=== PATIENT | female | born 1975 | race Caucasian/White ===

== ENCOUNTER 2017-04-01 15:30 | Emergency (ER) | payer OTHER ==
[~2017-04-01] VITALS: Ht 175.3 cm; Wt 121.2 kg
[~2017-04-01 15:30] MED LIST: LEVO25TA2 PO
[2017-04-01 15:33] VITALS: BP 147/99
[2017-04-01] MEDS ORDERED: ALBUTEROL SULFATE 2.5 MG/3 ML NPPB ONE (16:00)
[2017-04-01] MEDS ORDERED: DEXAMETHASONE 4 MG TABLET PO STA (16:12)
[2017-04-01] MEDS ORDERED: DEXAMETHASONE 4 MG TABLET ONE (16:14)
[2017-04-01] MEDS ORDERED: ALBUTEROL SULFATE 2.5 MG/3 ML ONE (16:24)
== END 2017-04-01 16:56 | disposition home or self-care (01) ==
LOC: ED 16:48
DX: J20.8 Acute bronchitis due to other specified organisms (principal); J01.00 Acute maxillary sinusitis, unspecified; J01.10 Acute frontal sinusitis, unspecified; E03.9 Hypothyroidism, unspecified; Z90.49 Acquired absence of other specified parts of digestive tract
CPT/HCPCS: 71020; 94640; J7613

== ENCOUNTER 2017-08-29 19:15 | Inpatient (IN) | payer OTHER ==
[~2017-08-29] VITALS: Ht 175.3 cm; Wt 124.0 kg
[2017-08-29] MEDS ORDERED: SODIUM CHLORIDE 0.9% 1,000 ML IV ONE (20:17)
[2017-08-29] MEDS ORDERED: ONDANSETRON 2MG/ML, 2ML ONE ×2 (20:17→21:15)
[2017-08-29] MEDS ORDERED: ONDANSETRON 2MG/ML, 2ML IVPush ONE (20:30)
[2017-08-29 20:38] LABS: HEMATOCRIT 40.9 % (34.6-47.8); HEMOGLOBIN 13.7 g/dL (11.7-16.4); WHITE BLOOD COUNT 15.6 x10^3/uL (3.4-10)
[2017-08-29] MEDS ORDERED: EPINEPHRINE 1 MG/ML, 1ML ONE (20:50)
[2017-08-29] MEDS ORDERED: MIDAZOLAM 1 MG/ML, 2ML ONE (21:10)
[2017-08-29] MEDS ORDERED: FENTANYL PF 100 MCG/2ML ONE (21:10)
[2017-08-29] MEDS ORDERED: PROPOFOL 10 MG/ML, 20ML ONE (21:15)
[2017-08-29] MEDS ORDERED: METOCLOPRAMIDE 5 MG/ML, 2ML ONE (21:15)
[2017-08-29] MEDS ORDERED: SUCCINYLCHOLINE 20 MG/ML, 10ML ONE (21:15)
[2017-08-29] MEDS ORDERED: DEXAMETHASONE 4 MG/ML, 5ML ONE (21:15)
[2017-08-29] MEDS ORDERED: ROCURONIUM 10 MG/ML ONE (21:15)
[2017-08-29] MEDS ORDERED: BUPIVACAINE/PF 0.5% INFIL ONE (21:46)
[2017-08-29] MEDS ORDERED: EPINEPHRINE 1 MG/ML, 1ML INFIL ONE (21:47)
[2017-08-29] MEDS ORDERED: PROPOFOL 100 ML IV ONE (22:19)
[2017-08-29] MEDS ORDERED: PROPOFOL 100 ML IV PRN (23:30)
[2017-08-29] MEDS ORDERED: FENTANYL PF 2,500 MCG in SODIUM CHLORIDE 0.9% 200 ML IV PRN (23:30)
[2017-08-30 00:03] LABS: HEMATOCRIT 32.7 % (34.6-47.8); HEMOGLOBIN 11.1 g/dL (11.7-16.4)
[2017-08-30] MEDS: CEFAZOLIN PMX 2GM/50ML 50 ML IVPB SCH ×2 (00:03→09:37)
[2017-08-30] MEDS: DEXAMETHASONE 4 MG/ML, 1ML IV SCH ×2 (00:03→09:37)
[2017-08-30] MEDS: D5%-0.45% NACL 1,000 ML IV SCH ×3 (00:04→21:59)
[2017-08-30 00:50] LABS: ABG COLLECTION SITE RIGHT BRACHIAL
[2017-08-30 04:32] LABS: HEMATOCRIT 32.3 % (34.6-47.8); HEMOGLOBIN 10.6 g/dL (11.7-16.4)
[2017-08-30 04:47] LABS: BLOOD UREA NITROGEN 17 mg/dL (7-18)
[2017-08-30] MEDS ORDERED: LACTULOSE 20 GM/30 ML UDC NG PRN (08:30)
[2017-08-30] MEDS ORDERED: BISACODYL 10 MG SUPP PR PRN (08:30)
[2017-08-30] MEDS ORDERED: LIDOCAINE-MPF 1%, 2ML ENDO PRN (08:30)
[2017-08-30] MEDS ORDERED: PHARMACY MAY ADJ FOR RENAL FX MC SCH (08:30)
[2017-08-30] MEDS ORDERED: SENNOSIDES 8.8 MG/5 ML ORAL SOL NG PRN (08:30)
[2017-08-30] MEDS ORDERED: SENNA/DOCUSATE TABLET NG PRN (08:30)
[2017-08-30] MEDS ORDERED: ALBUTEROL/IPRATROPIUM 2.5MG/0.5MG, 3 ML INLINE SCH (08:30)
[2017-08-30] MEDS: FAMOTIDINE 20 MG/2 ML IV SCH ×2 (09:37→20:30)
[2017-08-30] MEDS ORDERED: HYDROmorphone PCA 30 MG/30 ML IV PRN (14:30)
[2017-08-30 18:53] LABS: HEMOGLOBIN 10.6 g/dL (11.7-16.4)
[2017-08-31 05:43] LABS: HEMATOCRIT 29.7 % (34.6-47.8); HEMOGLOBIN 9.8 g/dL (11.7-16.4); WHITE BLOOD COUNT 18.8 x10^3/uL (3.4-10)
[2017-08-31 05:45] LABS: BLOOD UREA NITROGEN 10 mg/dL (7-18)
[2017-08-31 05:50] LABS: ASPARTATE AMINO TRANSFERASE 11 U/L (15-37)
[2017-08-31] MEDS: FAMOTIDINE 20 MG/2 ML IV SCH (08:51)
[2017-08-31] MEDS ORDERED: ACETAMINOPHEN 325 MG TABLET PO PRN (09:00)
[2017-08-31] MEDS: OXYcodone/APAP 5/325MG TABLET PO PRN ×4 (09:34→22:12)
[2017-08-31] MEDS: D5%-0.45% NACL 1,000 ML IV SCH (13:46)
[2017-08-31 19:18] VITALS: BP 131/87
[2017-09-01] MEDS: D5%-0.45% NACL 1,000 ML IV SCH ×2 (02:01→14:36)
[2017-09-01] MEDS: OXYcodone/APAP 5/325MG TABLET PO PRN ×4 (02:12→17:21)
[2017-09-01] MEDS ORDERED: FLU VACC QS2017-18 (36MOS+) UP/PF 0.5 ML IM-VACC ONE (07:30)
[2017-09-01 08:18] VITALS: BP 115/77
[2017-09-01 15:16] VITALS: BP 125/89
== END 2017-09-01 19:10 | disposition home or self-care (01) | DRG 907 ==
LOC: OR 20:17 → EDIP 20:18 → OR 20:31 → CCU 21:36 → 3NE 08-31 15:42
PROVIDERS: ADMIT Otolaryngology; ATTEND Otolaryngology
PROC: 0W33XZZ Control Bleeding in Oral Cavity and Throat, External Approach (ICD-10-PCS; principal; 2017-08-29 21:00)
DX: J95.830 Postprocedural hemorrhage of a respiratory system organ or structure following a respiratory system procedure (principal); J96.00 Acute respiratory failure, unspecified whether with hypoxia or hypercapnia; Z90.81 Acquired absence of spleen; Y82.8 Other medical devices associated with adverse incidents; Y83.6 Removal of other organ (partial) (total) as the cause of abnormal reaction of the patient, or of later complication, without mention of misadventure at the time of the procedure; E03.9 Hypothyroidism, unspecified; D50.0 Iron deficiency anemia secondary to blood loss (chronic)
CPT/HCPCS: 36415; 36600; 71010; 80048; 80053; 82803; 83735; 84703; 85014; 85018; 85025; 85610; 86850; 86900; 87070; 87081; 87181; 87184; 87205; 94002; 94003; 94150; 96374; J0171; J0690; J1100; J2250; J2405; J2704; J3010; J3490; J0330; J2765; J7030; J7050; S0028

== ENCOUNTER → 2019-03-23 | Outpatient (CLI) | payer OTHER | END | disposition home or self-care (01) | LOC: CVU 13:21 | PROVIDERS: ATTEND Family Medicine | DX: R00.2 Palpitations (principal) | CPT/HCPCS: 93306 ==

== ENCOUNTER 2020-01-03 13:33 | Emergency (ER) | payer OTHER ==
[~2020-01-03] VITALS: Ht 172.7 cm; Wt 135.4 kg
[2020-01-03] MEDS ORDERED: SODIUM CHLORIDE FLUSH 10ML SYR IVF ONE (14:00)
[2020-01-03] MEDS ORDERED: HYDROmorphone 2 MG/ML, 1ML IVPush PRN (14:00)
[2020-01-03] MEDS ORDERED: ONDANSETRON 2MG/ML, 2ML IVPush ONE (14:00)
[2020-01-03] MEDS ORDERED: ONDANSETRON 2MG/ML, 2ML ONE (14:14)
[2020-01-03] MEDS ORDERED: HYDROmorphone 1 MG/ML, 1ML INJ ONE (14:14)
--- NOTE | 2020-01-03 14:36 | NUR ---
IV ESTABLISHED AND BLOOD DRAWN AND SENT TO LAB. PT MEDICATED PER MAR. PT REQUESTING LIGHTS OFF. CALL LIGHT WITHIN REACH
[2020-01-03 14:41] LABS: MEAN CORPUSCULAR HEMOGLOBIN 29.7 pg (27.0-34.8); MEAN CORPUSCULAR HGB CONC 32.2 g/dL (32.4-35.8); MEAN CORPUSCULAR VOLUME 92.2 fL (80-100); MEAN PLATELET VOLUME 8.1 fL (7.4-10.4); PLATELET COUNT 550 x10^3/uL (130-400); RED BLOOD COUNT 4.53 x10^6/uL (3.82-5.3)
[2020-01-03 15:04] LABS: ALANINE AMINOTRANSFERASE 25 U/L (12-78); ALBUMIN 3.3 g/dL (3.4-5.0); ANION GAP 7 mmol/L (5-15); CALCIUM 8.2 mg/dL (8.5-10.1); CHLORIDE 107 mmol/L (98-107); CREATININE 1.14 mg/dL (0.55-1.02)
[2020-01-03 15:08] LABS: ALKALINE PHOSPHATASE 68 U/L (45-117); BILIRUBIN,TOTAL 0.4 mg/dL (0.2-1.0); TOTAL PROTEIN 7.5 g/dL (6.4-8.2)
[2020-01-03 15:09] VITALS: BP 125/70
[2020-01-03 15:09] LABS: BASOPHILS # (AUTO) 0.05 x10^3/uL (0-0.1); BASOPHILS % (AUTO) 0 % (0-1); EOSINOPHILS # (AUTO) 0.61 x10^3/uL (0-0.4); EOSINOPHILS % (AUTO) 4 % (1-7); LYMPHOCYTES # (AUTO) 2.94 x10^3/uL (1-3.4); LYMPHOCYTES % (AUTO) 21 % (22-44); MD SCAN; MONOCYTES # (AUTO) 1.58 x10^3/uL (0.2-0.8); MONOCYTES % (AUTO) 12 % (2-9); NEUTROPHILS % (AUTO) 62 % (42-75)
--- NOTE | 2020-01-03 15:10 | NUR ---
PT RESTING IN [facility], NO NEEDS AT THIS TIME. AWAITING LAB AND RAD RESULTS. CALL LIGHT WITHIN REACH.
[2020-01-03] MEDS ORDERED: MAALOX/HYOSCYAMINE/LIDOCAINE 45 ML BTL PO ONE (17:00)
[2020-01-03] MEDS ORDERED: MAALOX/HYOSCYAMINE/LIDOCAINE 45 ML BTL ONE (17:20)
== END 2020-01-03 17:35 | disposition home or self-care (01) ==
LOC: ED 16:39
DX: R10.31 Right lower quadrant pain (principal); R10.11 Right upper quadrant pain; R11.0 Nausea; Z90.81 Acquired absence of spleen
CPT/HCPCS: 36415; 74177; 76700; 80053; 83690; 84703; 85025; 96374; 96375; 99284; J1170; J2405